=== PATIENT | male | born 1975 | race Caucasian/White ===

== ENCOUNTER 2017-06-04 07:33 | Emergency (ER) | payer SELFPAY ==
[~2017-06-04] VITALS: Ht 188 cm; Wt 110.0 kg
[2017-06-04 07:43] VITALS: BP 161/80; PULSE 127; RESP 18; TEMP 97.7; O2SAT 97
[2017-06-04] MEDS ORDERED: ENBR50IN2 SQ (07:53)
[2017-06-04] MEDS ORDERED: LEVA750T9 PO (08:07)
[2017-06-04] MEDS ORDERED: PHENERGAN W CODEIN PO (08:07)
[2017-06-04] MEDS ORDERED: BENZ100 PO (08:07)
--- NOTE | 2017-06-04 08:08 | PD ---
HPI Chief Complaint: ENT Complaint Time Seen by Provider: 07:49 Travel History International Travel<30 days: No Contact w/Intl Traveler<30days: No Traveled to known affect area: No History of Present Illness HPI 42-year-old male complains of headache, sore throat, productive cough, body aches and chest pain with coughing. Patient states that his symptoms started yesterday. Patient denies any fever chills. Patient states that he has occasional epistaxis. Patient states that he has nausea but no vomiting or diarrhea. Patient has history of psoriasis and on Enbrel injection once a week. PFSH Social History Tobacco Use: No Allergies-Medications (Allergen,Severity, Reaction): Coded Allergies: azithromycin (Verified Allergy, Intermediate, hives, 06/04/17) Reported Meds & Prescriptions Reported Meds & Active Scripts Active Tessalon Perles (Benzonatate) 100 Mg Cap 200 Mg PO TID PRN [Phenergan W Codein] 10 Ml PO Q8HR Levaquin (Levofloxacin) 750 Mg Tablet 750 Mg PO DAILY Reported Enbrel PF Inj (Etanercept) 50 mg/ml Syr 50 Mg SQ Q7D Review of Systems General / Constitutional: No: Fever Eyes: No: Visual changes HENT: Positive: Sore Throat, No: Headaches Cardiovascular: No: Chest Pain or Discomfort Respiratory: Positive: Cough, No: Shortness of Breath Gastrointestinal: No: Abdominal Pain Genitourinary: No: Dysuria Musculoskeletal: No: Pain Skin: No Rash Neurologic: No: Weakness Psychiatric: No: Depression Endocrine: No: Polydipsia Hematologic/Lymphatic: No: Easy Bruising Physical Exam Narrative GENERAL: Well-nourished, well-developed patient. SKIN: Focused skin assessment warm/dry. HEAD: Normocephalic. EYES: No scleral icterus. No injection or drainage. Throat: Mild erythematous with edema. NECK: Supple, trachea midline. No JVD or lymphadenopathy. No meningismus CARDIOVASCULAR: Regular rate and rhythm without murmurs, gallops, or rubs. RESPIRATORY: Breath sounds equal bilaterally. No accessory muscle use. GASTROINTESTINAL: Abdomen soft, non-tender, nondistended. MUSCULOSKELETAL: No cyanosis, or edema. BACK: Nontender without obvious deformity. No CVA tenderness. Data Data Last Documented VS Vital Signs Date Time Temp Pulse Resp B/P (MAP) Pulse Ox O2 Delivery O2 Flow Rate FiO2 3/14/18 07:43 97.7 127 18 161/80 (107) 97 Orders Orders Ed Discharge Order (06/04/17 08:08) MDM Medical Decision Making Medical Screen Exam Complete: Yes Emergency Medical Condition: Yes Differential Diagnosis Differential diagnosis including pharyngitis, bronchitis, pneumonia. Narrative Course 42-year-old male with sore throat, productive cough and body ache and headache. Diagnosis Primary Impression: Pharyngitis Qualified Codes: J02.9 - Acute pharyngitis, unspecified Additional Impressions: Bronchitis Viral syndrome Patient Instructions: General Instructions Additional Instructions: Levaquin as directed. Tylenol ibuprofen for aching pain, headache. Follow-up with personal physician. Return if worse. Med/Other Pt SpecificInfo: Prescription(s) given Scripts Benzonatate (Tessalon Perles) 100 Mg Cap 200 MG PO TID Y for COUGH, #30 CAP 0 Refills Prov: Donell Pompa MD 06/04/17 [Phenergan W Codein] No Conflict Check 10 ML PO Q8HR for Cough, #120 Prov: Donell Pompa MD 06/04/17 Levofloxacin (Levaquin) 750 Mg Tablet 750 MG PO DAILY for Infection, #7 TAB 0 Refills Prov: Donell Pompa MD 06/04/17 Disposition: 01 DISCHARGE HOME Condition: Stable Donell Pompa MD Jun 04, 2017 08:07
== END 2017-06-04 08:25 | disposition home or self-care (01) ==
LOC: NEPE 07:33
DX: J02.9 Acute pharyngitis, unspecified (principal); J40 Bronchitis, not specified as acute or chronic; B34.9 Viral infection, unspecified; Z88.1 Allergy status to other antibiotic agents
CPT/HCPCS: 99283